=== PATIENT | male | born 1965 | race African-American/Black ===

== ENCOUNTER 2017-08-18 00:52 | Inpatient (IN) | payer MEDICAID ==
[~2017-08-18] VITALS: Ht 175.3 cm; Wt 116.1 kg
[2017-08-18] VITALS (28 sets, daily range): BP systolic 106–199; BP diastolic 58–118
--- NOTE | 2017-08-18 01:10 | NUR ---
Pt is received alert, responsive as he is matthew on by EMT with c/o chest pain x1week but become worsen today, he was given Nitro SL X3 with ASA 162mg po in the fleid. His care continue as awaits MD orders.
[2017-08-18] MEDS ORDERED: ONDANSETRON 4 MG/2 ML VIAL IV ONE (01:15)
[2017-08-18] MEDS ORDERED: MORPHINE SULFATE 2 MG/1 ML DISP.SYRIN IV ONE (01:15)
[2017-08-18 01:47] LABS: CREATININE 1.8 mg/dL (0.6-1.3)
[2017-08-18] MEDS ORDERED: ONDANSETRON 4 MG/2 ML VIAL ONE (01:47)
[2017-08-18] MEDS ORDERED: MORPHINE SULFATE 2 MG/1 ML DISP.SYRIN ONE (01:47)
--- NOTE | 2017-08-18 01:54 | NUR ---
Pt care continue while monitor as CXR is done , Medicated as ordered for pain and he is started on Nitroglycerin gtt.
[2017-08-18] MEDS ORDERED: NITROGLYCERIN IV 250 ML ONE (01:56)
[2017-08-18 01:57] LABS: BASOPHILS # (AUTO) 0.1 K/uL (0.0-8.0); BASOPHILS % (AUTO) 1.1 % (0.0-2.0); EOSINOPHILS # (AUTO) 0.3 K/uL (0.0-0.7); HEMATOCRIT 33.9 % (36.7-47.1); HEMOGLOBIN 11.4 g/dL (12.5-16.3); LYMPHOCYTES # (AUTO) 1.5 K/uL (20.0-40.0); LYMPHOCYTES % (AUTO) 21.9 % (20.5-51.5); MEAN CORPUSCULAR HEMOGLOBIN 30.8 uug (23.8-33.4); MEAN CORPUSCULAR HGB CONC 34 g/dL (32.5-36.3); MEAN CORPUSCULAR VOLUME 91.5 fL (73.0-96.2); MONOCYTES # (AUTO) 0.6 K/uL (2.0-10.0); MONOCYTES % (AUTO) 8.8 % (0.0-11.0); NEUTROPHILS # (AUTO) 4.4 K/uL (1.8-8.9); NEUTROPHILS % (AUTO) 64.2 % (38.5-71.5); PLATELET COUNT (AUTO) 206 K/uL (152-348); RED BLOOD CELL COUNT(AUTO) 3.71 MIL/uL (4.06-5.63); WHITE BLOOD COUNT (AUTO) 6.8 K/uL (3.6-10.2)
[2017-08-18 01:59] LABS: BILIRUBIN,DIRECT 0.1 mg/dL (0.0-0.2); BILIRUBIN,TOTAL 0.5 mg/dL (0.2-1.0)
[2017-08-18] MEDS: NITROGLYCERIN IV 250 ML IV ONE (02:00)
--- NOTE | 2017-08-18 02:00 | NUR ---
Pt is been start on Nitoglycerin gtt 10mcg/min as ordered.
[2017-08-18] MEDS ORDERED: POTASSIUM CHLORIDE 20 MEQ TAB.PRT.SR PO ONE (02:15)
--- NOTE | 2017-08-18 02:31 | NUR ---
Call placed to [facility], Dr. Coelho will be paged.
[2017-08-18] MEDS ORDERED: POTASSIUM CHLORIDE 20 MEQ POWDER PACKET PO ONE ×2 (02:45→11:45)
--- NOTE | 2017-08-18 02:45 | NUR ---
Pt is noted resting in bed as Nitogilycerin gtt is been Trtrate to 30mcg/min for blood presure off 173/108. his care continue while monitor.
[2017-08-18] MEDS ORDERED: POTASSIUM CHLORIDE 20 MEQ POWDER PACKET ONE (02:48)
[2017-08-18] MEDS ORDERED: ONDANSETRON 4 MG/2 ML VIAL IV PRN (03:00)
[2017-08-18] MEDS ORDERED: ASPIRIN 325 MG TABLET PO SCH (03:00)
[2017-08-18] MEDS ORDERED: MAGNESIUM HYDROXIDE 30 ML LIQUID UDC PO PRN (03:00)
[2017-08-18] MEDS ORDERED: ACETAMINOPHEN 325 MG TABLET PO PRN (03:00)
[2017-08-18] MEDS ORDERED: Z GUARD REMEDY PASTE 57 GM TUBE TOP PRN (03:00)
[2017-08-18] MEDS ORDERED: MORPHINE SULFATE 2 MG/1 ML DISP.SYRIN IV PRN (03:00)
[2017-08-18] MEDS ORDERED: HYDROCODONE/APAP 5-325MG TABLET PO PRN (03:00)
--- NOTE | 2017-08-18 03:00 | NUR ---
Pt remain alert, responsive as medication Nitoglyce gtt is been Titrate to 40meg /min as his care contiinue and report is hiven to the MECHANOTHERAPIST as pt is been admitted under the care off . His care continue.
--- NOTE | 2017-08-18 03:30 | NUR ---
Pt is been transfered on to the 2nd floor room CCU3 as his been admitted . His care continue.
--- NOTE | 2017-08-18 04:20 | NUR ---
Admitted pt from ER to Room CCU-3 via gurney, under the services of Dr. Coelho ([facility]). Dx: Chest pain, Unstable Angina, Possible NSTEMI. Nitroglycerin drip infusing from ER for BP and chest pain control. Pt drowsy but answering questions appropriately. Made comfortable in bed. Uncooperative with care, refusing to answer admission data questions. Prefers to be left alone to sleep. Denies any chest pain and was instructed to call RN SERJIO at the onset of pain/discomfort, pt agreeable.
--- NOTE | 2017-08-18 04:30 | NUR ---
Pt noted to have episodes of sleep apnea with O2 sats going down as low as 35%. Pt claims was told to have it before but no follow up. Will continue to monitor closely.
--- NOTE | 2017-08-18 05:00 | NUR ---
Note ASA ordered timed for 0300 not given; pt was still in ER, reported by [employer] INKER that pt got a dose in the field. Pt will get ordered dose routinely at 0900.
--- NOTE | 2017-08-18 05:05 | NUR ---
Found pt dangling at side of bed, pulled out EKG wires and O2. States wanted to go to the bathroom; had call moon in reach and was instructed earlier to stay in bed and to call RN for needs. Reality-orientation done again. Safety and fall precautions observed at all times. Voided on urinal to clear reymundo urine large amount.
[2017-08-18] MEDS ORDERED: NITROGLYCERIN IV 250 ML IV PRN (05:15)
--- NOTE | 2017-08-18 07:10 | NUR ---
Dr. Stone updated about pt condition. to come evaluate pt.
--- NOTE | 2017-08-18 07:30 | NUR ---
RECIEVED PT LYING IN BED SOUND ASLEEP. NO APPARENT DISTRESS NOTED. HR-SR-ST, NO ECTOPY. PT REFUSED TO WEAR HIS O2. RA SATURATION IS 92-96%. NO APPARENT RESPIRATOORY DISTRESS NOTED.
--- NOTE | 2017-08-18 08:00 | NUR ---
PT ON NITRO DRIP AT 50MCG/MIN VIA RIGHT AC. SBP IN THE 140'S. SPT C/O OF HEADACHES LEVEL 7.
--- NOTE | 2017-08-18 08:30 | NUR ---
PT C/O CHEST PRESSURE LEVEL 7. MEDICATED WITH MORPHINE 2MG SLOW IVP ORDERED. PT ABLE TO SLEEP.
--- NOTE | 2017-08-18 09:30 | NUR ---
SEEN AND EXAMINED BY DR APONTE (DYEHOUSE WORKER) AND ORDERED TO DISCONTINUE NITRO DRIP. STARTED TO TAPER OFF.
[2017-08-18] MEDS ORDERED: CARVEDILOL 3.125 MG TABLET PO SCH ×2 (10:15→18:00)
[2017-08-18] MEDS ORDERED: ASPIRIN EC 81 MG TABLET.DR PO SCH (10:15)
[2017-08-18] MEDS ORDERED: AMLODIPINE 5 MG TABLET PO SCH (10:15)
--- NOTE | 2017-08-18 10:30 | NUR ---
PT ATE LATE BREAKFAST AND TOLERATED WELL. NEW BP MEDS ORDERED AND GIVEN TO THE PT ORALLY.
--- NOTE | 2017-08-18 10:35 | NUR ---
C/O HEADACHE. MEDICATED WITH NORCO 1 TAB PO AND ABLE TO FEEL BETTER.
[2017-08-18] MEDS ORDERED: MULTIVITAMINS,THERAPEUTIC TABLET PO SCH (11:15)
[2017-08-18] MEDS ORDERED: LORAZEPAM 2 MG/1 ML VIAL IV PRN (11:15)
[2017-08-18] MEDS ORDERED: THIAMINE HCL 100 MG TABLET PO SCH (11:15)
[2017-08-18] MEDS ORDERED: FOLIC ACID 1 MG TABLET PO SCH (11:15)
[2017-08-18 11:30] LABS: CREATININE 1.6 mg/dL (0.6-1.3)
[2017-08-18 11:40] LABS: POTASSIUM 2.8 mmol/L (3.5-5.1)
[2017-08-18] MEDS ORDERED: ENOXAPARIN SODIUM 40 MG/0.4 ML DISP.SYRIN SQ SCH (11:45)
[2017-08-18] MEDS ORDERED: POTASSIUM CHLORIDE 20 MEQ POWDER PACKET GT ONE ×3 (12:00→20:00)
--- NOTE | 2017-08-18 12:00 | NUR ---
NITRO DRIP IS OFF ORDERED. PT IS SLEEPING ON AND OFF.
[2017-08-18] MEDS: MAGNESIUM SULFATE/D5W 100 ML IV SCH ×2 (12:51→14:13)
--- NOTE | 2017-08-18 13:00 | NUR ---
K IS LOW. MEDICATED WITH KCLOR 100MEQ ORDERED IN EQUAL TIME SPACING OF 40 MEQ ORALLY.
[2017-08-18] MEDS ORDERED: CARVEDILOL 12.5 MG TABLET PO ONE (13:15)
[2017-08-18] MEDS ORDERED: CARVEDILOL 12.5 MG TABLET PO SCH ×2 (13:30→18:00)
--- NOTE | 2017-08-18 15:30 | NUR ---
SEEN AND EXAMINED BY DR ZEPEDA , NO ORDERS.
[2017-08-18] MEDS ORDERED: hydrALAZINE HCL 20 MG/1 ML VIAL IV PRN (16:30)
--- NOTE | 2017-08-18 16:30 | NUR ---
PT'S SBP STILL IN THE HIGH 205/95. PT DENIES ANY HEADACHES OR DIZZINESS. DR MARCIAL BROWNING COLORER HIDES AND SKINS IS AWARE. HYDRALAZINE 10MG SLOW IVP GIVEN ORDERED.
--- NOTE | 2017-08-18 16:55 | NUR ---
LATEST BP IS 199/109. PT WANTED TO GO HOME AMA. DR ZEPEDA IS AWARE OF IT DURING HIS ROUNDS. PT SIGNED THE PAPER FOR AMA.
--- NOTE | 2017-08-18 17:20 | NUR ---
PT LEFT AMA. ALL BELONGINGS BACK WITH PT.
--- NOTE | 2017-08-18 17:30 | NUR ---
NOTIFIED NURSING MARKETING SYSTEMS MANAGER AND DR MCFARLAND.
[2017-08-18] MEDS ORDERED: SIMVASTATIN 10 MG TABLET PO SCH (21:00)
== END 2017-08-18 17:20 | disposition left against medical advice (07) | DRG 190 ==
LOC: ER 00:57 → CCU 03:39
DX: I21.A1 Myocardial infarction type 2 (principal); N17.0 Acute kidney failure with tubular necrosis; I13.0 Hypertensive heart and chronic kidney disease with heart failure and stage 1 through stage 4 chronic kidney disease, or unspecified chronic kidney disease; I50.32 Chronic diastolic (congestive) heart failure; N18.9 Chronic kidney disease, unspecified; D64.9 Anemia, unspecified; E78.5 Hyperlipidemia, unspecified; E87.6 Hypokalemia; F17.210 Nicotine dependence, cigarettes, uncomplicated; Z59.0 Homelessness; Z91.14 Patient's other noncompliance with medication regimen; F10.10 Alcohol abuse, uncomplicated
CPT/HCPCS: 36415; 70030-TC; 71010; 85025; 85730; 93005; 93307; A4663; J0360; J1650; J2060; J2270; J2405; J3475; J3490